=== PATIENT | male | born 2000 | race Caucasian/White ===

== ENCOUNTER 2021-04-09 19:23 | Emergency (ER) | payer MEDICAID ==
[~2021-04-09] VITALS: Ht 175.3 cm; Wt 120.7 kg
[2021-04-09 22:00] VITALS: BP 122/68
== END 2021-04-09 22:06 | disposition home or self-care (01) ==
LOC: ER 19:23
DX: N43.3 Hydrocele, unspecified (principal); E86.0 Dehydration
CPT/HCPCS: 76870

== ENCOUNTER 2021-05-17 10:47 | Emergency (ER) | payer MEDICAID ==
[~2021-05-17] VITALS: Ht 175.3 cm; Wt 120.2 kg
[2021-05-17 11:18] VITALS: BP 163/73
[2021-05-17 11:38] LABS: Basophils # (auto) 0 10 ^3/uL (0-0.2); Basophils % (auto) 0.5 % (0.0-2.0); Eosinophils # (auto) 0 10 ^3/uL (0-0.8); Eosinophils % (auto) 0.2 % (0.0-7.0); Hematocrit 49.3 % (41.0-53.0); Hemoglobin 17.2 g/dL (13.5-17.5); Lymphocytes # (auto) 2.2 10 ^3/uL (0.4-5.4); Lymphocytes % (auto) 22.6 % (10.0-50.0); Mean Corpuscular Hemoglobin 31.1 pg (28.0-32.0); Monocytes # (auto) 0.5 10 ^3/uL (0-1.3); Monocytes % (auto) 4.9 % (0.0-12.0); Neutrophils # (auto) 6.9 10 ^3/uL (1.6-8.6); Neutrophils % (auto) 71.8 % (37.0-80.0); Nucleated Red Blood Cells % 0.1 %; Red Blood Cells 5.54 10^6/uL (4.5-5.90); Red Cell Distribution Width 13.2 % (11.8-14.3); White Blood Cell 9.7 10^3/uL (4.4-10.8)
[2021-05-17 11:52] LABS: Anion Gap 7 (5-15); BUN/Creatinine Ratio 9.3; Blood Alcohol < 3.0 mg/dL (0-5); Blood Urea Nitrogen 8 mg/dL (7-18); Calcium 9.5 mg/dL (8.5-10.1); Carbon Dioxide 24 mmol/L (21-32); Chloride 110 mmol/L (98-107); GFR African American 147 mL/min; GFR Non-African American 122 mL/min; Glucose 98 mg/dL (74-106); Potassium 3.6 mmol/L (3.5-5.1); Sodium 141 mmol/L (136-145)
== END 2021-05-17 13:02 | disposition home or self-care (01) ==
LOC: ER 10:47
DX: R00.2 Palpitations (principal); F41.9 Anxiety disorder, unspecified
CPT/HCPCS: 36415; 80048; 80320; 84484; 85025; 85049; 93005

== ENCOUNTER 2021-10-14 01:03 | Emergency (ER) | payer MEDICAID ==
[~2021-10-14] VITALS: Ht 177.8 cm; Wt 117.9 kg
[2021-10-14 01:46] VITALS: BP 160/72
== END 2021-10-14 02:26 | disposition home or self-care (01) ==
LOC: ER 01:03
DX: R51.9 Headache, unspecified (principal); R42 Dizziness and giddiness; E66.9 Obesity, unspecified; F12.10 Cannabis abuse, uncomplicated; Z68.37 Body mass index [BMI] 37.0-37.9, adult

== ENCOUNTER 2021-12-18 08:54 | Emergency (ER) | payer MEDICAID ==
[~2021-12-18] VITALS: Ht 175.3 cm; Wt 117.9 kg
[2021-12-18] MEDS ORDERED: KETOROLAC TROMETH 60MG/2ML VIAL IM ONE (10:15)
[2021-12-18] MEDS ORDERED: IBUP800T26 PO (10:19)
[2021-12-18 10:36] VITALS: BP 135/69
== END 2021-12-18 11:06 | disposition home or self-care (01) ==
LOC: ER 08:54
DX: N43.3 Hydrocele, unspecified (principal); N50.812 Left testicular pain
CPT/HCPCS: 76870; 96372; 99284; J1885

== ENCOUNTER 2023-06-05 22:13 | Emergency (ER) | payer MEDICAID ==
[~2023-06-05] VITALS: Ht 175.3 cm; Wt 99.5 kg
[~2023-06-05 22:13] MED LIST: IBUP-1455 PO
[2023-06-05 23:37] VITALS: BP 137/74; RESP 18; O2SAT 99
[2023-06-06 00:18] VITALS: PULSE 68
[2023-06-06] MEDS ORDERED: IBUP1TAB5 PO (01:30)
[2023-06-06] MEDS ORDERED: ZOFR4T PO (01:30)
[2023-06-06] MEDS ORDERED: HYDROcodone-ACET 5/325MG TAB PO ONE (01:30)
[2023-06-06] MEDS ORDERED: ONDANSETRON ODT 4 MG TAB PO ONE (01:30)
== END 2023-06-06 01:51 | disposition home or self-care (01) ==
LOC: ER 22:13
DX: G93.0 Cerebral cysts (principal); R51.9 Headache, unspecified
CPT/HCPCS: 70450; 99284; Q0162